=== PATIENT | female | born 1985 | race Caucasian/White ===

== ENCOUNTER 2022-02-13 15:29 | Emergency (ER) | payer OTHER, MEDICAID ==
[2022-02-13] MEDS ORDERED: Morphine 4 MG/ML VIAL IVPUSH ONE ×5 (16:39→18:57)
[2022-02-13] MEDS ORDERED: Ketorolac 30 MG/ML SDV IVPUSH ONE (16:40)
[2022-02-13] MEDS ORDERED: LORazepam 2 MG/ML SDV IVPUSH ONE ×2 (18:15→18:35)
[2022-02-13] MEDS ORDERED: LORazepam 2 MG/ML SDV ONE (18:18)
[2022-02-13] MEDS ORDERED: Morphine 4 MG/ML VIAL ONE (18:28)
[2022-02-13] MEDS ORDERED: fentaNYL 100 MCG/2 ML SDV ONE (18:43)
[2022-02-13] MEDS ORDERED: fentaNYL 100 MCG/2 ML SDV IVPUSH ONE (19:01)
[2022-02-13] MEDS ORDERED: GI Cocktail Oral Solution 30 ML PO ONE (19:59)
[2022-02-13] MEDS ORDERED: Acetaminophen/HYDROcodone 325-5 MG Tab ONE (20:00)
[2022-02-13] MEDS ORDERED: Ibuprofen 400 MG Tab ONE (20:00)
== END 2022-02-13 20:10 | disposition home or self-care (01) ==
LOC: LB.ED 15:29 → EDBD 15:29 → LB.ED 20:10
DX: S82.841A Displaced bimalleolar fracture of right lower leg, initial encounter for closed fracture (principal); W00.0XXA Fall on same level due to ice and snow, initial encounter
CPT/HCPCS: 27810; 73600; 73610; 96374; 96375; 96376; 99283; A9270; J1885; J2060; J2270; J3010

== ENCOUNTER 2024-06-22 17:03 | Observation (INO) | payer BC ==
[2024-06-22] MEDS ORDERED: Sodium Chloride 0.9% 10 ML Syringe FLUSH PRN (17:16)
[2024-06-22] MEDS: Cyanocobalamin (Vitamin B12) 1,000 MCG/ML SDV IM SCH (19:25)
[2024-06-23 10:32] VITALS: BP 126/74; PULSE 53
[2024-06-24 15:31] LABS: FOLATE,SERUM 9.7 ng/mL (>=5.9)
== END 2024-06-23 10:30 | disposition home or self-care (01) ==
LOC: LB.ED 17:03 → LB.MS 19:09
PROVIDERS: ADMIT Surgery; ATTEND Surgery
DX: D64.9 Anemia, unspecified (principal)
CPT/HCPCS: 36415; 36430; 82607; 82746; 85018; 86850; 86900; 86901; 86920; 86922; 96372; 99222; 99238; 99284; G0378; J3420; P9016